=== PATIENT | male | born 1940 | race Caucasian/White ===

== ENCOUNTER 2019-06-15 16:05 | Inpatient (IN) | payer MEDICARE ==
[~2019-06-15] VITALS: Ht 182.9 cm; Wt 74.8 kg
[2019-06-15] MEDS ORDERED: ACETAMINOPHEN 325 MG TABLET PO PRN (18:15)
[2019-06-15] MEDS ORDERED: MELATONIN 3 MG TABLET PO PRN (18:15)
[2019-06-15 18:20] VITALS: BP 130/57
[2019-06-15] MEDS ORDERED: INFLUENZA VIRUS VACCINE QVS 2019-20 (3YR+)/PF 60 MCG/0.5 ML SYRINGE IM ONE (19:00)
[2019-06-15] MEDS ORDERED: PNEUMOCOCCAL VACCINE POLYVALENT 0.5 ML VIAL [PPSV23] IM ONE (19:00)
[2019-06-15 20:31] VITALS: BP 104/68
[2019-06-15] MEDS: SENNA 187 MG TABLET PO SCH (21:11)
[2019-06-15] MEDS: DOCUSATE SODIUM 100 MG CAPSULE PO SCH (21:11)
[2019-06-15] MEDS: TAMSULOSIN HCL 0.4 MG CAPSULE PO SCH (21:11)
[2019-06-15] MEDS: METOPROLOL TARTRATE 25 MG TABLET PO SCH (21:12)
[2019-06-15] MEDS: ATORVASTATIN CALCIUM 10 MG TABLET PO SCH (21:12)
[2019-06-15] MEDS: APIXABAN 5 MG TABLET PO SCH (21:12)
[2019-06-15] MEDS: LACOSAMIDE 100 MG TABLET PO SCH (21:12)
[2019-06-15 23:58] VITALS: BP 105/60
[2019-06-16 07:20] LABS: BASOPHILS % (AUTO) 1.1 % (0.0-2.0); EOSINOPHILS % (AUTO) 6.7 % (1.0-6.0); HEMATOCRIT 35.6 % (41-53); HEMOGLOBIN 12.4 g/dL (13.5-17.5); LYMPHOCYTES # (AUTO) 1.4 K/uL (1.0-4.8); LYMPHOCYTES % (AUTO) 28.2 % (22.0-44.0); MEAN CORPUSCULAR HEMOGLOBIN 31.6 pg (26.0-34.0); MEAN CORPUSCULAR HGB CONC 34.9 G/dL (31.0-37.0); MEAN CORPUSCULAR VOLUME 91 fL (80-100); MONOCYTES # (AUTO) 0.5 K/uL (0.1-1.0); MONOCYTES % (AUTO) 9.6 % (2.0-9.0); NEUTROPHILS # (AUTO) 2.7 K/uL (1.8-7.7); NEUTROPHILS % (AUTO) 54.4 % (40.0-70.0); PLATELET COUNT (AUTO) 225 K/uL (150-450); RED BLOOD CELL COUNT(AUTO) 3.93 MIL/uL (4.50-5.90); RED CELL DISTRIBUTION WIDTH 14.3 % (11.5-14.5)
[2019-06-16 07:31] VITALS: BP 95/69
[2019-06-16 07:35] LABS: ALANINE AMINOTRANSFERASE 43 U/L (12-78); ALBUMIN 2.8 g/dL (3.4-5.0); ALKALINE PHOSPHATASE 88 U/L (46-116); ANION GAP 5 mmol/L (8-16); ASPARTATE AMINOTRANSFERASE 24 U/L (15-37); BILIRUBIN,TOTAL 0.8 mg/dL (0.1-1.0); CALCIUM, TOTAL 8.9 mg/dL (8.8-10.5); CARBON DIOXIDE 29 mmol/L (22-29); CHLORIDE 107 mmol/L (98-107); CREATININE 0.98 mg/dL (0.60-1.30); GLUCOSE,RANDOM 93 mg/dL (70-110); POTASSIUM 4.8 mmol/L (3.5-5.1); SODIUM SERUM 141 mmol/L (136-145); TOTAL PROTEIN, SERUM 5.7 g/dL (6.4-8.2); UREA NITROGEN, BLOOD 17 mg/dL (7-18)
[2019-06-16 07:36] LABS: GLOMERULAR FILTR. RATE CALC > 60 mL/min (>60)
[2019-06-16] MEDS: APIXABAN 5 MG TABLET PO SCH ×2 (07:52→20:41)
[2019-06-16] MEDS: UBIDECARENONE 100 MG CAPSULE PO SCH (07:52)
[2019-06-16] MEDS: ASPIRIN 81 MG EC TABLET PO SCH (07:52)
[2019-06-16] MEDS: LACOSAMIDE 100 MG TABLET PO SCH ×2 (07:55→20:40)
[2019-06-16] MEDS: DOCUSATE SODIUM 100 MG CAPSULE PO SCH ×2 (07:56→20:41)
[2019-06-16] MEDS: DILTIAZEM HCL CD 180 MG ER CAPSULE PO SCH (07:56)
[2019-06-16] MEDS: METOPROLOL TARTRATE 25 MG TABLET PO SCH ×2 (09:00→20:41)
[2019-06-16 16:12] VITALS: BP 133/70
[2019-06-16] MEDS: SENNA 187 MG TABLET PO SCH (20:41)
[2019-06-16] MEDS: TAMSULOSIN HCL 0.4 MG CAPSULE PO SCH (20:42)
[2019-06-16] MEDS: ATORVASTATIN CALCIUM 10 MG TABLET PO SCH (20:42)
[2019-06-16 20:49] VITALS: BP 106/60
[2019-06-17] VITALS: BP 101/67
[2019-06-17 07:30] VITALS: BP 109/64
[2019-06-17] MEDS: METOPROLOL TARTRATE 25 MG TABLET PO SCH ×2 (08:03→20:57)
[2019-06-17] MEDS: APIXABAN 5 MG TABLET PO SCH ×2 (08:03→20:58)
[2019-06-17] MEDS: ASPIRIN 81 MG EC TABLET PO SCH (08:03)
[2019-06-17] MEDS: LACOSAMIDE 100 MG TABLET PO SCH ×2 (08:03→20:58)
[2019-06-17] MEDS: UBIDECARENONE 100 MG CAPSULE PO SCH (08:03)
[2019-06-17] MEDS: DOCUSATE SODIUM 100 MG CAPSULE PO SCH ×3 (08:03→20:57)
[2019-06-17] MEDS: DILTIAZEM HCL CD 180 MG ER CAPSULE PO SCH (08:04)
[2019-06-17 15:00] VITALS: BP 101/56
[2019-06-17 16:00] VITALS: BP 101/56
[2019-06-17] MEDS: ATORVASTATIN CALCIUM 10 MG TABLET PO SCH (20:57)
[2019-06-17] MEDS: SENNA 187 MG TABLET PO SCH (20:57)
[2019-06-17] MEDS: TAMSULOSIN HCL 0.4 MG CAPSULE PO SCH (21:00)
[2019-06-18] VITALS: BP 120/64
[2019-06-18] MEDS ORDERED: DILT180C63 PO (02:54)
[2019-06-18] MEDS ORDERED: APIX5TAB PO (02:54)
[2019-06-18] MEDS ORDERED: UBID100C44 PO (02:54)
[2019-06-18] MEDS ORDERED: ASPI-1182 PO (02:54)
[2019-06-18] MEDS ORDERED: DOCU-275 PO (02:54)
[2019-06-18] MEDS ORDERED: LACO100 PO (02:54)
[2019-06-18] MEDS ORDERED: TAMS-13 PO (02:56)
[2019-06-18] MEDS ORDERED: METO25 PO (02:56)
[2019-06-18] MEDS ORDERED: ATOR10TA84 PO (02:56)
[2019-06-18 07:30] VITALS: BP 114/78
[2019-06-18] MEDS: ASPIRIN 81 MG EC TABLET PO SCH (09:15)
[2019-06-18] MEDS: LACOSAMIDE 100 MG TABLET PO SCH (09:15)
[2019-06-18] MEDS: DOCUSATE SODIUM 100 MG CAPSULE PO SCH (09:15)
[2019-06-18] MEDS: APIXABAN 5 MG TABLET PO SCH (09:15)
[2019-06-18] MEDS: METOPROLOL TARTRATE 25 MG TABLET PO SCH (09:15)
[2019-06-18] MEDS: UBIDECARENONE 100 MG CAPSULE PO SCH (09:15)
[2019-06-18] MEDS: DILTIAZEM HCL CD 180 MG ER CAPSULE PO SCH (09:16)
[2019-06-18] MEDS ORDERED: SENN-176 PO (11:16)
== END 2019-06-18 12:30 | disposition home or self-care (01) | DRG 57 ==
LOC: 2WR 17:22
PROC: 3E02340 Introduction of Influenza Vaccine into Muscle, Percutaneous Approach (ICD-10-PCS; principal; 2019-06-16)
PROC: 3E0234Z Introduction of Serum, Toxoid and Vaccine into Muscle, Percutaneous Approach (ICD-10-PCS; 2019-06-16)
DX: I69.354 Hemiplegia and hemiparesis following cerebral infarction affecting left non-dominant side (principal); G25.9 Extrapyramidal and movement disorder, unspecified; E78.5 Hyperlipidemia, unspecified; G47.00 Insomnia, unspecified; I10 Essential (primary) hypertension; I48.91 Unspecified atrial fibrillation; N40.0 Benign prostatic hyperplasia without lower urinary tract symptoms; Z79.899 Other long term (current) drug therapy; Z23 Encounter for immunization
CPT/HCPCS: 87081; 90686; 90732; 92523; 97110; 97112; 97116; 97163; 97165; 97530; 97535